=== PATIENT | female | born 1970 | race Caucasian/White ===

== ENCOUNTER 2017-10-18 16:21 | Emergency (ER) | payer OTHER ==
[~2017-10-18] VITALS: Ht 160 cm; Wt 79.4 kg
[~2017-10-18 16:21] MED LIST: ANAPROX DS550 MG PO; ASPIRIN81 M1 PO; BACTRIM DS 8001 TA1 PO; CIPRO500 MG PO; CLEOCIN 60 ML60 ML TP; DAYPRO600 M1 PO; DIAZEPAM2 MG PO; FLEXERIL10 MG PO; HYDROCODONE BIT1 T11 PO; MOTRIN600 MG PO; MOTRIN800 MG PO; NEURONTIN400 MG PO; NKHM; NORFLEX100 MG PO; PRILOSEC20 M1 PO; PRILOSEC20 MG PO; REBETOL200 MG PO; ROBAXIN750 MG PO; SEPTRA DS 800 M1 TAB PO; TORADOL10 MG PO; TRAMADOL HCL50 MG PO; VICODIN 5/500 505 MG PO; VICODIN 500 MG-1 TAB PO; XANAX0.25 MG PO; XANAX0.5 MG PO
[2017-10-18 16:29] VITALS: BP 138/87
[2017-10-18] MEDS ORDERED: EASIVENT CHAMBE1 KIT DEVI (18:14)
[2017-10-18] MEDS ORDERED: PROAIR HFA8.5 GM INH (18:14)
[2017-10-18] MEDS ORDERED: PREDNISONE50 MG PO (18:14)
== END 2017-10-18 18:37 | disposition home or self-care (01) ==
LOC: ED 16:21
DX: J40 Bronchitis, not specified as acute or chronic (principal); F17.200 Nicotine dependence, unspecified, uncomplicated; Z98.51 Tubal ligation status; Z98.890 Other specified postprocedural states; Z79.899 Other long term (current) drug therapy

== ENCOUNTER 2017-11-30 10:27 | Emergency (ER) | payer OTHER ==
[~2017-11-30] VITALS: Ht 160 cm; Wt 83.5 kg
[~2017-11-30 10:27] MED LIST changes: +EASIVENT CHAMBE1 KIT DEVI; +PREDNISONE50 MG PO; +PROAIR HFA8.5 GM INH
[2017-11-30 11:45] VITALS: BP 138/82
== END 2017-11-30 12:35 | disposition home or self-care (01) ==
LOC: ED 10:27
DX: S80.01XA Contusion of right knee, initial encounter (principal); S80.11XA Contusion of right lower leg, initial encounter; R03.0 Elevated blood-pressure reading, without diagnosis of hypertension; Z79.899 Other long term (current) drug therapy; W19.XXXA Unspecified fall, initial encounter; Y93.89 Activity, other specified; Y92.89 Other specified places as the place of occurrence of the external cause; Y99.8 Other external cause status

== ENCOUNTER → 2018-12-08 | Outpatient (CLI) | payer MEDICARE ==
[~2018-12-08] MED LIST changes: +IBU800 MG PO
== END | disposition home or self-care (01) ==
LOC: MAMMO 12-01 14:00
DX: Z12.31 Encounter for screening mammogram for malignant neoplasm of breast (principal)

== ENCOUNTER 2018-12-28 18:24 | Emergency (ER) | payer MEDICARE, MEDICAID ==
[~2018-12-28] VITALS: Ht 160 cm; Wt 81.6 kg
[~2018-12-28 18:24] MED LIST changes: -IBU800 MG PO
[2018-12-28 18:26] VITALS: BP 123/79
[2018-12-28] MEDS ORDERED: IBU800 MG PO (20:03)
== END 2018-12-28 19:59 | disposition home or self-care (01) ==
LOC: ED 18:24
DX: S92.325A Nondisplaced fracture of second metatarsal bone, left foot, initial encounter for closed fracture (principal); S92.332A Displaced fracture of third metatarsal bone, left foot, initial encounter for closed fracture; S92.342A Displaced fracture of fourth metatarsal bone, left foot, initial encounter for closed fracture; M25.562 Pain in left knee; I10 Essential (primary) hypertension; F17.200 Nicotine dependence, unspecified, uncomplicated; Z98.890 Other specified postprocedural states; Z79.899 Other long term (current) drug therapy; W01.0XXA Fall on same level from slipping, tripping and stumbling without subsequent striking against object, initial encounter; Y93.89 Activity, other specified; Y92.89 Other specified places as the place of occurrence of the external cause; Y99.8 Other external cause status

== ENCOUNTER → 2020-08-27 | Outpatient (CLI) | payer MEDICARE, MEDICAID ==
[~2020-08-27] MED LIST changes: +CYCLOBENZAPRINE10 MG PO; +DULOXETINE HCL30 MG PO; +HYDROCODON-ACE1 EACH PO; +IBU800 MG PO; +LISINOPRIL5 MG PO; +LYRICA150 M1 PO; +MISOPROST200 MCG PO; +PERCOCET 5-3251 EACH PO; +VITAMIN D32000 UNI1 PO
[2020-08-27 10:51] LABS: BASO % 0.4 % (0.0-1.0); EOS # 0.2 10*3/uL (0.0-0.4); EOS % 2.7 % (1.0-4.0); HEMATOCRIT 38.3 % (37.0-47.0); LYMPH # 1.6 10*3/uL (1.3-4.4); LYMPH % 27.9 % (27.0-41.0); MEAN CELL VOLUME 93.6 fl (81.0-99.0); MEAN CORPUSCULAR HGB 30.6 pg (27.0-31.0); MEAN CORPUSCULAR HGB CONC 32.6 g/dl (33.0-37.0); MEAN PLATELET VOLUME 9.6 fl (9.6-12.3); MONO # 0.4 10*3/uL (0.1-1.0); NEUT # 3.4 10*3/uL (2.3-7.9); NEUT % 61.8 % (47.0-73.0); PLATELET COUNT AUTOMATED 228 10*3/uL (130-400); RED BLOOD COUNT 4.09 10*6/uL (4.10-5.10); RED CELL DISTRI WIDTH 13.4 % (0-14.5); WHITE BLOOD COUNT 5.6 10*3/uL (4.8-10.8)
[2020-08-27 11:21] LABS: ALBUMIN 3.6 gm/dl (3.1-4.5); BUN 14 mg/dl (7-24); CHLORIDE 111 mmol/L (98-107); POTASSIUM 4.2 mmol/L (3.5-5.1); SGOT/AST 25 IU/L (3-35); SODIUM 139 mmol/L (136-145)
[2020-08-27 11:25] LABS: ALKALINE PHOSPHATASE 87 U/L (45-117); CHOLESTEROL 158 mg/dL (<200); CREATININE 0.63 mg/dL (0.55-1.02); FREE T4 0.68 ng/dl (0.76-1.46); HDL CHOLESTEROL 65 mg/dl (40-60); LDL CHOLESTEROL 73 mg/dL (9-159); SGPT/ALT 29 U/L (12-78); TOTAL PROTEIN 7.1 gm/dL (6.4-8.2); TRIGLYCERIDES 102 mg/dl (<150); VLDL CHOLESTEROL 20 mg/dL (6-40)
[2020-08-27 11:41] LABS: VITAMIN D, 25-HYDROXY 31.7 ng/mL (30-100)
== END | disposition home or self-care (01) ==
LOC: LAB 10:20
PROVIDERS: ATTEND Internal Medicine
DX: I10 Essential (primary) hypertension (principal); E55.9 Vitamin D deficiency, unspecified

== ENCOUNTER 2020-11-24 15:54 | Inpatient (IN) | payer OTHER, MEDICAID ==
[~2020-11-24] VITALS: Ht 160 cm; Wt 92.2 kg
[~2020-11-24 15:54] MED LIST changes: -CYCLOBENZAPRINE10 MG PO; -DULOXETINE HCL30 MG PO; -HYDROCODON-ACE1 EACH PO; -LISINOPRIL5 MG PO; -LYRICA150 M1 PO; -MISOPROST200 MCG PO; -PERCOCET 5-3251 EACH PO; -VITAMIN D32000 UNI1 PO
[2020-11-24 15:59] VITALS: BP 107/83
[2020-11-24 16:44] LABS: BASO % 0.4 % (0.0-1.0); EOS # 0.1 10*3/uL (0.0-0.4); EOS % 1.2 % (1.0-4.0); HEMATOCRIT 42.8 % (37.0-47.0); LYMPH # 2.5 10*3/uL (1.3-4.4); LYMPH % 23.9 % (27.0-41.0); MEAN CELL VOLUME 100.2 fl (81.0-99.0); MEAN CORPUSCULAR HGB 32.1 pg (27.0-31.0); MEAN PLATELET VOLUME 10.3 fl (9.6-12.3); MONO # 0.9 10*3/uL (0.1-1.0); MONO % 8.3 % (3.0-9.0); NEUT # 6.9 10*3/uL (2.3-7.9); PLATELET COUNT AUTOMATED 208 10*3/uL (130-400); RED BLOOD COUNT 4.27 10*6/uL (4.10-5.10); RED CELL DISTRI WIDTH 13.1 % (0-14.5); WHITE BLOOD COUNT 10.4 10*3/uL (4.8-10.8)
[2020-11-24 16:55] LABS: ALBUMIN 3.8 gm/dl (3.1-4.5); ALKALINE PHOSPHATASE 110 U/L (45-117); BUN 14 mg/dl (7-24); CHLORIDE 104 mmol/L (98-107); CREATININE 0.69 mg/dL (0.55-1.02); POTASSIUM 3.5 mmol/L (3.5-5.1); SGOT/AST 18 IU/L (3-35); SGPT/ALT 21 U/L (12-78); SODIUM 136 mmol/L (136-145); TOTAL PROTEIN 8.1 gm/dL (6.4-8.2)
[2020-11-24] MEDS ORDERED: LISINOPRIL5 MG PO (19:16)
[2020-11-24] MEDS ORDERED: CYCLOBENZAPRINE10 MG PO (19:17)
[2020-11-24] MEDS ORDERED: MISOPROST200 MCG PO (19:17)
[2020-11-24 19:25] VITALS: BP 110/71
[2020-11-24 20:00] VITALS: BP 126/89
[2020-11-24 20:39] VITALS: BP 111/71
[2020-11-25] VITALS: BP 129/80
[2020-11-25 06:06] LABS: ALBUMIN 2.9 gm/dl (3.1-4.5); ALKALINE PHOSPHATASE 82 U/L (45-117); BUN 11 mg/dl (7-24); CHLORIDE 109 mmol/L (98-107); CREATININE 0.45 mg/dL (0.55-1.02); SGOT/AST 11 IU/L (3-35); SGPT/ALT 15 U/L (12-78); SODIUM 139 mmol/L (136-145)
[2020-11-25 06:07] LABS: BASO % 0.3 % (0.0-1.0); EOS # 0.2 10*3/uL (0.0-0.4); EOS % 2.5 % (1.0-4.0); HEMATOCRIT 38.4 % (37.0-47.0); LYMPH % 30.2 % (27.0-41.0); MEAN CELL VOLUME 98.5 fl (81.0-99.0); MEAN CORPUSCULAR HGB 31.8 pg (27.0-31.0); MEAN CORPUSCULAR HGB CONC 32.3 g/dl (33.0-37.0); MEAN PLATELET VOLUME 10.3 fl (9.6-12.3); MONO # 0.7 10*3/uL (0.1-1.0); MONO % 10.1 % (3.0-9.0); NEUT # 3.8 10*3/uL (2.3-7.9); NEUT % 56.6 % (47.0-73.0); PLATELET COUNT AUTOMATED 188 10*3/uL (130-400); RED CELL DISTRI WIDTH 13.2 % (0-14.5); WHITE BLOOD COUNT 6.7 10*3/uL (4.8-10.8)
[2020-11-25 09:07] VITALS: BP 115/73
[2020-11-25 12:00] VITALS: BP 123/81
[2020-11-25 15:56] VITALS: BP 134/86
[2020-11-25 20:00] VITALS: BP 113/70
[2020-11-26] VITALS: BP 110/55
[2020-11-26 00:34] LABS: BASO % 0.3 % (0.0-1.0); EOS # 0.2 10*3/uL (0.0-0.4); EOS % 2.5 % (1.0-4.0); HEMATOCRIT 37.7 % (37.0-47.0); LYMPH # 2.3 10*3/uL (1.3-4.4); LYMPH % 32.2 % (27.0-41.0); MEAN CELL VOLUME 98.7 fl (81.0-99.0); MEAN CORPUSCULAR HGB 31.7 pg (27.0-31.0); MEAN CORPUSCULAR HGB CONC 32.1 g/dl (33.0-37.0); MEAN PLATELET VOLUME 10.1 fl (9.6-12.3); MONO # 0.8 10*3/uL (0.1-1.0); MONO % 11.4 % (3.0-9.0); NEUT # 3.9 10*3/uL (2.3-7.9); NEUT % 53.3 % (47.0-73.0); PLATELET COUNT AUTOMATED 208 10*3/uL (130-400); RED BLOOD COUNT 3.82 10*6/uL (4.10-5.10); WHITE BLOOD COUNT 7.2 10*3/uL (4.8-10.8)
[2020-11-26 08:00] VITALS: BP 117/73
[2020-11-26 12:00] VITALS: BP 138/75
[2020-11-26 12:40] LABS: BODY FLUID WBC 28380 /uL
[2020-11-26 13:02] LABS: BF LYMPHOCYTES 2 %; BF MACROPHAGES 2 %; BF NEUTROPHILS 96 %
[2020-11-26] MEDS ORDERED: DULOXETINE HCL30 MG PO (15:45)
[2020-11-26] MEDS ORDERED: LYRICA150 M1 PO (15:46)
[2020-11-26] MEDS ORDERED: VITAMIN D32000 UNI1 PO (15:46)
[2020-11-26 16:00] VITALS: BP 141/117
[2020-11-26 16:30] VITALS: BP 130/88
[2020-11-26 20:00] VITALS: BP 113/71
[2020-11-27] VITALS: BP 108/67
[2020-11-27 06:21] LABS: BASO % 0.5 % (0.0-1.0); EOS # 0.2 10*3/uL (0.0-0.4); EOS % 3.4 % (1.0-4.0); HEMATOCRIT 37.8 % (37.0-47.0); LYMPH % 32.3 % (27.0-41.0); MEAN CELL VOLUME 99.5 fl (81.0-99.0); MEAN CORPUSCULAR HGB 31.6 pg (27.0-31.0); MEAN CORPUSCULAR HGB CONC 31.7 g/dl (33.0-37.0); MEAN PLATELET VOLUME 9.9 fl (9.6-12.3); MONO # 0.8 10*3/uL (0.1-1.0); MONO % 12.4 % (3.0-9.0); NEUT # 3.1 10*3/uL (2.3-7.9); NEUT % 51.2 % (47.0-73.0); PLATELET COUNT AUTOMATED 215 10*3/uL (130-400); RED CELL DISTRI WIDTH 12.8 % (0-14.5); WHITE BLOOD COUNT 6.1 10*3/uL (4.8-10.8)
[2020-11-27 06:52] LABS: BUN 7 mg/dl (7-24); CHLORIDE 107 mmol/L (98-107); CREATININE 0.54 mg/dL (0.55-1.02); SODIUM 140 mmol/L (136-145)
[2020-11-27 08:00] VITALS: BP 100/58; BP 136/58
[2020-11-27 16:00] VITALS: BP 111/55
[2020-11-27 20:00] VITALS: BP 126/84
[2020-11-28] VITALS: BP 128/81
[2020-11-28 06:15] LABS: BASO % 0.4 % (0.0-1.0); EOS # 0.2 10*3/uL (0.0-0.4); EOS % 4.4 % (1.0-4.0); HEMATOCRIT 40.5 % (37.0-47.0); LYMPH # 1.7 10*3/uL (1.3-4.4); LYMPH % 35.6 % (27.0-41.0); MEAN CELL VOLUME 97.8 fl (81.0-99.0); MEAN CORPUSCULAR HGB 31.4 pg (27.0-31.0); MEAN CORPUSCULAR HGB CONC 32.1 g/dl (33.0-37.0); MEAN PLATELET VOLUME 9.9 fl (9.6-12.3); MONO # 0.7 10*3/uL (0.1-1.0); MONO % 13.8 % (3.0-9.0); NEUT # 2.2 10*3/uL (2.3-7.9); NEUT % 45.4 % (47.0-73.0); PLATELET COUNT AUTOMATED 243 10*3/uL (130-400); RED BLOOD COUNT 4.14 10*6/uL (4.10-5.10); RED CELL DISTRI WIDTH 12.4 % (0-14.5); WHITE BLOOD COUNT 4.8 10*3/uL (4.8-10.8)
[2020-11-28 06:26] LABS: BUN 8 mg/dl (7-24); CHLORIDE 108 mmol/L (98-107); CREATININE 0.47 mg/dL (0.55-1.02); POTASSIUM 3.9 mmol/L (3.5-5.1); SODIUM 138 mmol/L (136-145)
[2020-11-28 12:00] VITALS: BP 110/79
[2020-11-28] MEDS ORDERED: PERCOCET 5-3251 EACH PO (14:58)
== END 2020-11-28 17:00 | disposition home health service (06) | DRG 603 ==
LOC: ED 15:54 → 5E 18:21 → EDHOLD 18:21 → 5E 18:48
PROVIDERS: Orthopaedic Surgery; Physician Assistant; Student in an Organized Health Care Education/Training Program; ADMIT Internal Medicine; ATTEND Internal Medicine
PROC: 0M943ZZ Drainage of Left Elbow Bursa and Ligament, Percutaneous Approach (ICD-10-PCS; 2020-11-26)
PROC: 0X9 Anatomical Regions, Upper Extremities, Drainage (ICD-10-PCS; principal; 2020-11-28)
PROC: 02HV33Z Insertion of Infusion Device into Superior Vena Cava, Percutaneous Approach (ICD-10-PCS; 2020-11-28)
DX: L03.114 Cellulitis of left upper limb (principal); E44.0 Moderate protein-calorie malnutrition; M70.22 Olecranon bursitis, left elbow; M48.00 Spinal stenosis, site unspecified; E87.8 Other disorders of electrolyte and fluid balance, not elsewhere classified; R73.9 Hyperglycemia, unspecified; E83.51 Hypocalcemia; F17.210 Nicotine dependence, cigarettes, uncomplicated; I10 Essential (primary) hypertension; Z71.6 Tobacco abuse counseling; Z82.3 Family history of stroke; Z79.899 Other long term (current) drug therapy; Z79.51 Long term (current) use of inhaled steroids; Z68.36 Body mass index [BMI] 36.0-36.9, adult

== ENCOUNTER 2020-12-04 11:54 | Inpatient (IN) | payer OTHER, MEDICAID ==
[~2020-12-04] VITALS: Ht 160 cm; Wt 90.1 kg
[~2020-12-04 11:54] MED LIST changes: +CYCLOBENZAPRINE10 MG PO; +DULOXETINE HCL30 MG PO; +LISINOPRIL5 MG PO; +LYRICA150 M1 PO; +MISOPROST200 MCG PO; +PERCOCET 5-3251 EACH PO; +VITAMIN D32000 UNI1 PO
[2020-12-04 12:09] VITALS: BP 112/75
[2020-12-04 13:18] LABS: BASO # 0.1 10*3/uL (0.0-0.1); BASO % 0.6 % (0.0-1.0); EOS # 0.1 10*3/uL (0.0-0.4); EOS % 1.8 % (1.0-4.0); HEMATOCRIT 39.1 % (37.0-47.0); LYMPH % 26.3 % (27.0-41.0); MEAN CELL VOLUME 98.2 fl (81.0-99.0); MEAN CORPUSCULAR HGB 31.7 pg (27.0-31.0); MEAN CORPUSCULAR HGB CONC 32.2 g/dl (33.0-37.0); MEAN PLATELET VOLUME 9.7 fl (9.6-12.3); MONO # 0.6 10*3/uL (0.1-1.0); MONO % 7.1 % (3.0-9.0); NEUT # 4.9 10*3/uL (2.3-7.9); NEUT % 63.9 % (47.0-73.0); PLATELET COUNT AUTOMATED 263 10*3/uL (130-400); RED BLOOD COUNT 3.98 10*6/uL (4.10-5.10); RED CELL DISTRI WIDTH 12.8 % (0-14.5); WHITE BLOOD COUNT 7.7 10*3/uL (4.8-10.8)
[2020-12-04 13:27] LABS: ACT PARTIAL THROMBO TIME 25.7 SECONDS (20.0-32.1)
[2020-12-04 13:32] LABS: ALBUMIN 3.4 gm/dl (3.1-4.5); ALKALINE PHOSPHATASE 98 U/L (45-117); BUN 11 mg/dl (7-24); CHLORIDE 106 mmol/L (98-107); CREATININE 0.64 mg/dL (0.55-1.02); POTASSIUM 4.1 mmol/L (3.5-5.1); SGOT/AST 18 IU/L (3-35); SGPT/ALT 14 U/L (12-78); SODIUM 139 mmol/L (136-145); TOTAL PROTEIN 7.5 gm/dL (6.4-8.2)
[2020-12-04 16:29] VITALS: BP 115/84
[2020-12-04 17:22] VITALS: BP 133/92; BP 140/80
[2020-12-04 20:00] VITALS: BP 141/96
[2020-12-05] VITALS: BP 138/83
[2020-12-05 06:38] LABS: BASO # 0.1 10*3/uL (0.0-0.1); EOS # 0.2 10*3/uL (0.0-0.4); EOS % 3.8 % (1.0-4.0); LYMPH # 2.3 10*3/uL (1.3-4.4); LYMPH % 38.9 % (27.0-41.0); MEAN CELL VOLUME 97.7 fl (81.0-99.0); MEAN CORPUSCULAR HGB 30.8 pg (27.0-31.0); MEAN CORPUSCULAR HGB CONC 31.6 g/dl (33.0-37.0); MEAN PLATELET VOLUME 9.9 fl (9.6-12.3); MONO # 0.6 10*3/uL (0.1-1.0); NEUT # 2.7 10*3/uL (2.3-7.9); PLATELET COUNT AUTOMATED 259 10*3/uL (130-400); RED BLOOD COUNT 3.89 10*6/uL (4.10-5.10); RED CELL DISTRI WIDTH 12.8 % (0-14.5); WHITE BLOOD COUNT 5.8 10*3/uL (4.8-10.8)
[2020-12-05 06:54] LABS: BUN 9 mg/dl (7-24); CHLORIDE 109 mmol/L (98-107); CREATININE 0.54 mg/dL (0.55-1.02); SODIUM 139 mmol/L (136-145)
[2020-12-05 06:56] LABS: CPK 63 U/L (26-192)
[2020-12-05 08:33] VITALS: BP 111/63
[2020-12-05 12:09] VITALS: BP 97/56
[2020-12-05 16:23] VITALS: BP 112/62
[2020-12-05 20:00] VITALS: BP 133/83
[2020-12-06] VITALS: BP 113/73
[2020-12-06 08:00] VITALS: BP 116/71
[2020-12-06 12:00] VITALS: BP 125/87
[2020-12-06] MEDS ORDERED: HYDROCODON-ACE1 EACH PO (15:36)
== END 2020-12-06 16:35 | disposition home health service (06) | DRG 464 ==
LOC: ED 11:54 → 5E 14:58 → EDHOLD 14:58 → 5E 16:23
PROVIDERS: Emergency Medicine; Student in an Organized Health Care Education/Training Program; ADMIT Internal Medicine; ATTEND Internal Medicine
PROC: 0JBH0ZZ Excision of Left Lower Arm Subcutaneous Tissue and Fascia, Open Approach (ICD-10-PCS; principal; 2020-12-05)
DX: M71.122 Other infective bursitis, left elbow (principal); L03.114 Cellulitis of left upper limb; F17.210 Nicotine dependence, cigarettes, uncomplicated; B95.61 Methicillin susceptible Staphylococcus aureus infection as the cause of diseases classified elsewhere; E83.41 Hypermagnesemia; I10 Essential (primary) hypertension; R70.0 Elevated erythrocyte sedimentation rate; R15.9 Full incontinence of feces; Z98.891 History of uterine scar from previous surgery; Z98.51 Tubal ligation status; Z82.3 Family history of stroke; Z71.6 Tobacco abuse counseling

== ENCOUNTER → 2021-02-23 | Outpatient (CLI) | payer OTHER ==
[~2021-02-23] MED LIST changes: +HYDROCODON-ACE1 EACH PO
== END | disposition home or self-care (01) ==
LOC: RAD 12:19
PROVIDERS: ATTEND Physician Assistant
DX: M25.511 Pain in right shoulder (principal)

== ENCOUNTER → 2021-03-08 | Outpatient (CLI) | payer OTHER ==
[2021-03-08 15:37] LABS: BASO % 0.6 % (0.0-1.0); EOS # 0.2 10*3/uL (0.0-0.4); EOS % 2.6 % (1.0-4.0); HEMATOCRIT 42.4 % (37.0-47.0); LYMPH # 2.4 10*3/uL (1.3-4.4); LYMPH % 36.2 % (27.0-41.0); MEAN CELL VOLUME 100.2 fl (81.0-99.0); MEAN CORPUSCULAR HGB 31.9 pg (27.0-31.0); MEAN CORPUSCULAR HGB CONC 31.8 g/dl (33.0-37.0); MEAN PLATELET VOLUME 10.5 fl (9.6-12.3); MONO # 0.6 10*3/uL (0.1-1.0); MONO % 9.1 % (3.0-9.0); NEUT # 3.4 10*3/uL (2.3-7.9); NEUT % 51.2 % (47.0-73.0); PLATELET COUNT AUTOMATED 216 10*3/uL (130-400); RED BLOOD COUNT 4.23 10*6/uL (4.10-5.10); RED CELL DISTRI WIDTH 14.3 % (0-14.5); WHITE BLOOD COUNT 6.6 10*3/uL (4.8-10.8)
[2021-03-08 15:54] LABS: ALBUMIN 3.8 gm/dl (3.1-4.5); ALKALINE PHOSPHATASE 92 U/L (45-117); BUN 8 mg/dl (7-24); CHLORIDE 106 mmol/L (98-107); CREATININE 0.61 mg/dL (0.55-1.02); POTASSIUM 3.8 mmol/L (3.5-5.1); SGOT/AST 32 IU/L (3-35); SGPT/ALT 31 U/L (12-78); SODIUM 137 mmol/L (136-145); TOTAL PROTEIN 7.5 gm/dL (6.4-8.2)
== END | disposition home or self-care (01) ==
LOC: LAB 14:43
PROVIDERS: ATTEND Specialist
DX: M70.32 Other bursitis of elbow, left elbow (principal); I10 Essential (primary) hypertension

== ENCOUNTER 2021-04-24 15:07 | Emergency (ER) | payer OTHER | END 2021-04-24 16:15 | disposition left against medical advice (07) | LOC: ED 15:07 | DX: M79.606 Pain in leg, unspecified (principal); Z53.21 Procedure and treatment not carried out due to patient leaving prior to being seen by health care provider ==

== ENCOUNTER → 2021-08-06 | Outpatient (CLI) | payer OTHER | END | disposition home or self-care (01) | LOC: RAD 14:08 | PROVIDERS: ATTEND Internal Medicine | DX: M79.641 Pain in right hand (principal) ==

== ENCOUNTER → 2021-09-20 | Outpatient (CLI) | payer OTHER | END | disposition home or self-care (01) | LOC: LAB 09:16 | PROVIDERS: ATTEND Orthopaedic Surgery | DX: M19.90 Unspecified osteoarthritis, unspecified site (principal) ==

== ENCOUNTER → 2021-10-16 | Outpatient (CLI) | payer OTHER | END | disposition home or self-care (01) | LOC: MRI 13:47 | PROVIDERS: ATTEND Internal Medicine | DX: M79.641 Pain in right hand (principal) ==

== ENCOUNTER 2022-05-22 18:35 | Emergency (ER) | payer OTHER ==
[~2022-05-22] VITALS: Wt 83.6 kg
[2022-05-22 18:56] LABS: BILIRUBIN Negative (Negative); BLOOD Negative (Negative); CLARITY Clear (Clear); COLOR Yellow (Yellow); GLUCOSE Negative (Negative); KETONE Negative (Negative); LEUKO ESTERASE Negative (Negative); NITRITE Negative (Negative); PH 6.5 (4.5-8.0); SPECIFIC GRAVITY <= 1.005 (1.001-1.030); UROBILINOGEN 0.2 E.U./dl (0.0-1.0)
[2022-05-22 19:05] LABS: URINE AMPHETAMINES < 1000 (1000ng/ml); URINE BARBITURATES < 200 (200ng/ml); URINE BENZODIAZEPINES < 200 (200ng/ml); URINE CANNABINOIDS (THC) < 50 (50ng/ml); URINE COCAINE < 300 (300ng/ml); URINE METHADONE < 300 (300ng/ml); URINE OPIATES < 300 (300ng/ml)
[2022-05-22 19:12] LABS: URINE PHENCYCLIDINE < 25 (25ng/ml)
[2022-05-22 19:52] LABS: BACTERIA TRACE; EPITHELIAL CELLS 0-2
[2022-05-22 20:06] LABS: BASO # 0.1 10*3/uL (0.0-0.1); BASO % 1.1 % (0.0-1.0); EOS # 0.1 10*3/uL (0.0-0.4); EOS % 2.4 % (1.0-4.0); HEMATOCRIT 42.9 % (37.0-47.0); LYMPH % 43.2 % (27.0-41.0); MEAN CELL VOLUME 105.1 fl (81.0-99.0); MEAN CORPUSCULAR HGB 32.8 pg (27.0-31.0); MEAN CORPUSCULAR HGB CONC 31.2 g/dl (33.0-37.0); MEAN PLATELET VOLUME 9.8 fl (9.6-12.3); MONO # 0.4 10*3/uL (0.1-1.0); MONO % 8.2 % (3.0-9.0); NEUT # 2.1 10*3/uL (2.3-7.9); NEUT % 44.9 % (47.0-73.0); PLATELET COUNT AUTOMATED 248 10*3/uL (130-400); RED BLOOD COUNT 4.08 10*6/uL (4.10-5.10); RED CELL DISTRI WIDTH 11.9 % (0-14.5); WHITE BLOOD COUNT 4.6 10*3/uL (4.8-10.8)
[2022-05-22 20:26] LABS: ALKALINE PHOSPHATASE 96 U/L (45-117); BUN 11 mg/dl (7-24); CHLORIDE 112 mmol/L (98-107); CREATININE 0.57 mg/dL (0.55-1.02); POTASSIUM 4.1 mmol/L (3.5-5.1); SGOT/AST 30 IU/L (3-35); SGPT/ALT 39 U/L (12-78); SODIUM 143 mmol/L (136-145); TOTAL PROTEIN 7.6 gm/dL (6.4-8.2)
[2022-05-22 20:56] LABS: ACETAMINOPHEN (TYLENOL) < 5.0 ug/ml (10-30)
[2022-05-22 21:05] LABS: URINE AMPHETAMINES < 1000 (1000ng/ml); URINE BARBITURATES < 200 (200ng/ml); URINE BENZODIAZEPINES < 200 (200ng/ml); URINE CANNABINOIDS (THC) < 50 (50ng/ml); URINE COCAINE < 300 (300ng/ml); URINE METHADONE < 300 (300ng/ml); URINE OPIATES < 300 (300ng/ml)
[2022-05-22 21:15] LABS: URINE PHENCYCLIDINE < 25 (25ng/ml)
[2022-05-22 21:20] VITALS: BP 107/68; BP 107/74; BP 149/126
[2022-05-24 06:10] VITALS: BP 140/85
== END 2022-05-24 09:45 ==
LOC: ED 18:35
PROVIDERS: Emergency Medicine
DX: F43.21 Adjustment disorder with depressed mood (principal); Z20.822 Contact with and (suspected) exposure to COVID-19; F10.10 Alcohol abuse, uncomplicated; I10 Essential (primary) hypertension; F17.210 Nicotine dependence, cigarettes, uncomplicated; Z98.890 Other specified postprocedural states; Z98.51 Tubal ligation status; Z79.899 Other long term (current) drug therapy; Y90.9 Presence of alcohol in blood, level not specified

== ENCOUNTER 2023-01-07 16:12 | Emergency (ER) | payer OTHER ==
[~2023-01-07] VITALS: Wt 78.0 kg
[2023-01-07 16:30] VITALS: BP 125/86
== END 2023-01-07 18:09 | disposition left against medical advice (07) ==
LOC: ED 16:12
DX: R51.9 Headache, unspecified (principal); R22.0 Localized swelling, mass and lump, head; Z53.21 Procedure and treatment not carried out due to patient leaving prior to being seen by health care provider; W17.89XA Other fall from one level to another, initial encounter; Y93.89 Activity, other specified; Y92.89 Other specified places as the place of occurrence of the external cause; Y99.8 Other external cause status

== ENCOUNTER 2023-02-04 21:11 | Emergency (ER) | payer OTHER ==
[~2023-02-04] VITALS: Ht 160 cm; Wt 77.1 kg
[2023-02-04 21:57] VITALS: BP 107/82
== END 2023-02-04 23:42 | disposition home or self-care (01) ==
LOC: ED 21:11
DX: R51.9 Headache, unspecified (principal); K21.9 Gastro-esophageal reflux disease without esophagitis; F32.A Depression, unspecified; Z98.890 Other specified postprocedural states; F10.10 Alcohol abuse, uncomplicated; F17.200 Nicotine dependence, unspecified, uncomplicated

== ENCOUNTER 2023-03-24 17:17 | Emergency (ER) | payer OTHER ==
[~2023-03-24] VITALS: Wt 76.2 kg
[2023-03-24 18:07] LABS: BASO % 0.5 % (0.0-1.0); EOS # 0.2 10*3/uL (0.0-0.4); EOS % 2.6 % (1.0-4.0); HEMATOCRIT 39.7 % (37.0-47.0); LYMPH # 2.2 10*3/uL (1.3-4.4); LYMPH % 38.7 % (27.0-41.0); MEAN CELL VOLUME 94.1 fl (81.0-99.0); MEAN PLATELET VOLUME 9.9 fl (9.6-12.3); MONO # 0.4 10*3/uL (0.1-1.0); MONO % 6.1 % (3.0-9.0); NEUT % 51.9 % (47.0-73.0); PLATELET COUNT AUTOMATED 251 10*3/uL (130-400); RED BLOOD COUNT 4.22 10*6/uL (4.10-5.10); RED CELL DISTRI WIDTH 12.2 % (0-14.5); WHITE BLOOD COUNT 5.8 10*3/uL (4.8-10.8)
[2023-03-24 18:36] LABS: ALKALINE PHOSPHATASE 83 U/L (46-116); BUN 13 mg/dl (9-23); CHLORIDE 103 mmol/L (98-107); LIPASE 23 U/L (12-53); POTASSIUM 3.6 mmol/L (3.4-5.1); SGPT/ALT 21 U/L (10-49); TOTAL PROTEIN 6.8 gm/dL (6.0-8.0)
[2023-03-24 19:07] VITALS: BP 134/89
== END 2023-03-24 20:14 | disposition home or self-care (01) ==
LOC: ED 17:17
PROVIDERS: Physician Assistant Medical
DX: R07.1 Chest pain on breathing (principal); K21.9 Gastro-esophageal reflux disease without esophagitis; F32.A Depression, unspecified; Z98.890 Other specified postprocedural states; F17.200 Nicotine dependence, unspecified, uncomplicated; F10.10 Alcohol abuse, uncomplicated

== ENCOUNTER 2023-08-15 21:49 | Emergency (ER) | payer OTHER, MEDICARE ==
[~2023-08-15] VITALS: Ht 160 cm; Wt 76.2 kg
[2023-08-15 22:41] LABS: BASO % 0.5 % (0.0-1.0); EOS # 0.1 10*3/uL (0.0-0.4); EOS % 2.1 % (1.0-4.0); HEMATOCRIT 44.4 % (37.0-47.0); LYMPH # 2.3 10*3/uL (1.3-4.4); LYMPH % 35.4 % (27.0-41.0); MEAN CELL VOLUME 96.9 fl (81.0-99.0); MEAN PLATELET VOLUME 9.4 fl (9.6-12.3); MONO # 0.5 10*3/uL (0.1-1.0); MONO % 7.3 % (3.0-9.0); NEUT # 3.6 10*3/uL (2.3-7.9); NEUT % 54.5 % (47.0-73.0); PLATELET COUNT AUTOMATED 268 10*3/uL (130-400); RED BLOOD COUNT 4.58 10*6/uL (4.10-5.10); RED CELL DISTRI WIDTH 12.3 % (0-14.5); WHITE BLOOD COUNT 6.6 10*3/uL (4.8-10.8)
[2023-08-15 22:49] LABS: ACT PARTIAL THROMBO TIME 25.4 SECONDS (20.0-32.1)
[2023-08-15 22:54] LABS: ALKALINE PHOSPHATASE 103 U/L (46-116); BUN 11 mg/dl (9-23); CHLORIDE 105 mmol/L (98-107); ETHYL ALCOHOL 7.7 mg/dl (<3); LIPASE 25 U/L (12-53); POTASSIUM 3.7 mmol/L (3.4-5.1); SGPT/ALT 23 U/L (5-49); TOTAL PROTEIN 7.8 gm/dL (6.0-8.0)
[2023-08-16 00:30] VITALS: BP 134/78
== END 2023-08-16 00:45 | disposition home or self-care (01) ==
LOC: ED 21:53
PROVIDERS: Internal Medicine
DX: M54.2 Cervicalgia (principal); R07.89 Other chest pain; M25.551 Pain in right hip; M79.604 Pain in right leg; M79.601 Pain in right arm; F17.210 Nicotine dependence, cigarettes, uncomplicated; Z79.899 Other long term (current) drug therapy; Z98.890 Other specified postprocedural states; Z98.51 Tubal ligation status; V89.2XXA Person injured in unspecified motor-vehicle accident, traffic, initial encounter; Y93.89 Activity, other specified; Y92.488 Other paved roadways as the place of occurrence of the external cause; Y99.8 Other external cause status

== ENCOUNTER 2024-08-05 21:01 | Emergency (ER) | payer OTHER ==
[~2024-08-05] VITALS: Ht 160 cm; Wt 81.4 kg
[2024-08-05 21:33] LABS: BASO % 0.5 % (0.0-1.0); EOS # 0.1 10*3/uL (0.0-0.4); EOS % 1.7 % (1.0-4.0); HEMATOCRIT 43.4 % (37.0-47.0); MEAN CELL VOLUME 97.1 fl (81.0-99.0); MEAN CORPUSCULAR HGB 30.6 pg (27.0-31.0); MEAN CORPUSCULAR HGB CONC 31.6 g/dl (33.0-37.0); MEAN PLATELET VOLUME 9.2 fl (9.6-12.3); MONO # 0.6 10*3/uL (0.1-1.0); MONO % 8.6 % (3.0-9.0); NEUT # 4.5 10*3/uL (2.3-7.9); NEUT % 69.7 % (47.0-73.0); PLATELET COUNT AUTOMATED 252 10*3/uL (130-400); RED BLOOD COUNT 4.47 10*6/uL (4.10-5.10); RED CELL DISTRI WIDTH 13.3 % (0-14.5); WHITE BLOOD COUNT 6.4 10*3/uL (4.8-10.8)
[2024-08-05 22:03] LABS: ALKALINE PHOSPHATASE 96 U/L (46-116); BUN 15 mg/dl (9-23); CHLORIDE 105 mmol/L (98-107); POTASSIUM 3.7 mmol/L (3.4-5.1); SGPT/ALT 30 U/L (5-49); TOTAL PROTEIN 7.4 gm/dL (6.0-8.0)
[2024-08-05 22:04] LABS: ETHYL ALCOHOL < 3.0 mg/dl (<3)
[2024-08-05] MEDS ORDERED: DULOXETINE HCL60 MG PO (22:33)
[2024-08-05] MEDS ORDERED: MELOXICAM15 MG PO (22:33)
[2024-08-05] MEDS ORDERED: OXYBUTYNIN CHLOR5 M1 PO (22:34)
[2024-08-05] MEDS ORDERED: PREGABALIN200 MG PO (22:34)
[2024-08-05] MEDS ORDERED: OMEPRAZOLE40 MG PO (22:35)
[2024-08-05] MEDS ORDERED: HYDROXYZINE HCL25 MG PO (22:36)
[2024-08-05 23:21] LABS: BILIRUBIN Negative (Negative); BLOOD Negative (Negative); CLARITY Cloudy (Clear); COLOR Dark Yellow (Yellow); GLUCOSE Negative (Negative); KETONE Trace (Negative); LEUKO ESTERASE 2+ (Negative); NITRITE Positive (Negative); PH 6.5 (4.5-8.0)
[2024-08-05 23:28] LABS: URINE AMPHETAMINES Positive (1000ng/ml); URINE BARBITURATES Negative (200ng/ml); URINE BENZODIAZEPINES Negative (200ng/ml); URINE CANNABINOIDS (THC) Negative (50ng/ml); URINE COCAINE Negative (300ng/ml); URINE METHADONE Negative (300ng/ml); URINE OPIATES Negative (300ng/ml); URINE PHENCYCLIDINE Negative (25ng/ml)
[2024-08-05 23:54] LABS: BACTERIA 4+; EPITHELIAL CELLS 31-40; WBC 16-20 wbc/hpf (0-5)
[2024-08-06] MEDS ORDERED: CIPRO500 MG PO (00:01)
[2024-08-06] MEDS ORDERED: Ciprofloxacin Hydrochloride 500 MG TAB PO ONE (00:05)
[2024-08-06 00:07] VITALS: BP 117/70
== END 2024-08-06 00:09 | disposition home or self-care (01) ==
LOC: ED 21:01
PROVIDERS: Internal Medicine
DX: N39.0 Urinary tract infection, site not specified (principal); R41.82 Altered mental status, unspecified; E83.42 Hypomagnesemia; K21.9 Gastro-esophageal reflux disease without esophagitis; F32.A Depression, unspecified; F10.10 Alcohol abuse, uncomplicated; F17.200 Nicotine dependence, unspecified, uncomplicated; Z98.890 Other specified postprocedural states; Z79.899 Other long term (current) drug therapy

== ENCOUNTER 2024-12-25 03:09 | Emergency (ER) | payer OTHER ==
[~2024-12-25 03:09] MED LIST changes: +DULOXETINE HCL60 MG PO; +HYDROXYZINE HCL25 MG PO; +MELOXICAM15 MG PO; +OMEPRAZOLE40 MG PO; +OXYBUTYNIN CHLOR5 M1 PO; +PREGABALIN200 MG PO
== END 2024-12-25 03:15 | disposition left against medical advice (07) ==
LOC: ED 03:09
DX: Z04.89 Encounter for examination and observation for other specified reasons (principal); Z79.899 Other long term (current) drug therapy; Z98.890 Other specified postprocedural states; Z87.891 Personal history of nicotine dependence; Z53.21 Procedure and treatment not carried out due to patient leaving prior to being seen by health care provider

== ENCOUNTER 2025-06-17 08:49 | Emergency (ER) | payer OTHER ==
[~2025-06-17] VITALS: Ht 160 cm; Wt 70.3 kg
[2025-06-17 08:51] VITALS: BP 149/99
[2025-06-17] MEDS ORDERED: diazePAM 10 MG/2 ML SYR IV ONE (09:10)
[2025-06-17] MEDS ORDERED: SODIUM CHLORIDE 0.9% 1,000 ML IV ONE (09:10)
[2025-06-17] MEDS ORDERED: Ondansetron Hydrochloride 4 MG/2 ML VIAL IV ONE (09:10)
[2025-06-17 09:33] LABS: BASO # 0.0 10*3/uL (0.0-0.1); BASO % 0.6 % (0.0-1.0); EOS # 0.1 10*3/uL (0.0-0.4); EOS % 1.9 % (1.0-4.0); MEAN CELL VOLUME 93.1 fl (81.0-99.0); MEAN CORPUSCULAR HGB 30.9 pg (27.0-31.0); MEAN PLATELET VOLUME 10.1 fl (9.6-12.3); MONO # 0.7 10*3/uL (0.1-1.0); MONO % 9.5 % (3.0-9.0); NEUT # 3.7 10*3/uL (2.3-7.9); NEUT % 53.5 % (47.0-73.0); NUCLEATED RED BLOOD CELL 0.0 % (0.0-0.0); NUCLEATED RED BLOOD CELL 0.0 10*3/uL (0.0-0.0); PLATELET COUNT AUTOMATED 264 10*3/uL (130-400); RED CELL DISTRI WIDTH 12.8 % (0-14.5)
[2025-06-17 09:56] LABS: BILIRUBIN Negative (Negative); BLOOD Negative (Negative); CLARITY Cloudy (Clear); COLOR Dark Yellow (Yellow); KETONE 3+ (Negative); LEUKO ESTERASE 1+ (Negative); NITRITE Negative (Negative); PH 6.0 (4.5-8.0); SPECIFIC GRAVITY 1.020 (1.001-1.030); UROBILINOGEN 1.0 E.U./dl (0.0-1.0)
[2025-06-17 10:03] LABS: BUN 19 mg/dl (9-23); CPK 88 U/L (34-171); SGPT/ALT 23 U/L (5-49)
[2025-06-17 10:03] LABS: URINE AMPHETAMINES Positive (1000ng/ml); URINE BARBITURATES Negative (200ng/ml); URINE BENZODIAZEPINES Positive (200ng/ml); URINE CANNABINOIDS (THC) Positive (50ng/ml); URINE COCAINE Negative (300ng/ml); URINE METHADONE Negative (300ng/ml); URINE OPIATES Negative (300ng/ml); URINE PHENCYCLIDINE Negative (25ng/ml)
[2025-06-17 10:08] LABS: BACTERIA 3+; MUCOUS 3+; WBC 16-20 wbc/hpf (0-5)
[2025-06-17 10:14] LABS: ETHYL ALCOHOL < 3.0 mg/dl (<3)
[2025-06-17] MEDS ORDERED: CIPRO500 MG PO (11:15)
== END 2025-06-17 11:22 | disposition home or self-care (01) ==
LOC: ED 08:49
PROVIDERS: Emergency Medicine
DX: F19.10 Other psychoactive substance abuse, uncomplicated (principal); G89.29 Other chronic pain; M54.50 Low back pain, unspecified; M79.2 Neuralgia and neuritis, unspecified; N39.0 Urinary tract infection, site not specified; F20.9 Schizophrenia, unspecified; F17.200 Nicotine dependence, unspecified, uncomplicated; Z79.899 Other long term (current) drug therapy; Z79.2 Long term (current) use of antibiotics; Z98.890 Other specified postprocedural states

== ENCOUNTER 2025-06-19 08:53 | Emergency (ER) | payer OTHER ==
[~2025-06-19] VITALS: Ht 160 cm; Wt 64.4 kg
[2025-06-19 09:59] VITALS: BP 129/59
== END 2025-06-19 11:00 | disposition home or self-care (01) ==
LOC: ED 08:53
DX: F19.10 Other psychoactive substance abuse, uncomplicated (principal); K21.9 Gastro-esophageal reflux disease without esophagitis; F32.A Depression, unspecified; F20.9 Schizophrenia, unspecified; F17.200 Nicotine dependence, unspecified, uncomplicated; Z86.19 Personal history of other infectious and parasitic diseases; Z98.890 Other specified postprocedural states

== ENCOUNTER 2025-06-20 02:29 | Emergency (ER) | payer OTHER ==
[~2025-06-20] VITALS: Ht 167.6 cm; Wt 72.6 kg
[2025-06-20 02:40] VITALS: BP 137/98
[2025-06-20 03:02] LABS: BILIRUBIN Negative (Negative); BLOOD 2+ (Negative); CLARITY Cloudy (Clear); COLOR Dark Yellow (Yellow); KETONE 1+ (Negative); LEUKO ESTERASE Trace (Negative); NITRITE Negative (Negative); PH 5.5 (4.5-8.0); SPECIFIC GRAVITY 1.025 (1.001-1.030); UROBILINOGEN 1.0 E.U./dl (0.0-1.0)
[2025-06-20 03:04] LABS: BASO # 0.0 10*3/uL (0.0-0.1); BASO % 0.6 % (0.0-1.0); EOS # 0.2 10*3/uL (0.0-0.4); EOS % 2.3 % (1.0-4.0); MEAN CELL VOLUME 94.8 fl (81.0-99.0); MEAN CORPUSCULAR HGB 30.9 pg (27.0-31.0); MEAN PLATELET VOLUME 10.0 fl (9.6-12.3); MONO # 0.5 10*3/uL (0.1-1.0); MONO % 7.3 % (3.0-9.0); NEUT # 3.5 10*3/uL (2.3-7.9); NEUT % 54.7 % (47.0-73.0); NUCLEATED RED BLOOD CELL 0.0 % (0.0-0.0); NUCLEATED RED BLOOD CELL 0.0 10*3/uL (0.0-0.0); PLATELET COUNT AUTOMATED 248 10*3/uL (130-400); RED CELL DISTRI WIDTH 12.7 % (0-14.5)
[2025-06-20 03:07] LABS: EPITHELIAL CELLS 41-50
[2025-06-20 03:08] LABS: BACTERIA 3+; RBC 16-20 rbc/hpf (0-2); WBC 16-20 wbc/hpf (0-5)
[2025-06-20 03:09] LABS: URINE AMPHETAMINES Positive (1000ng/ml); URINE BARBITURATES Negative (200ng/ml); URINE BENZODIAZEPINES Positive (200ng/ml); URINE CANNABINOIDS (THC) Negative (50ng/ml); URINE COCAINE Negative (300ng/ml); URINE METHADONE Negative (300ng/ml); URINE OPIATES Negative (300ng/ml); URINE PHENCYCLIDINE Negative (25ng/ml)
[2025-06-20 03:36] LABS: BUN 27 mg/dl (9-23); SGPT/ALT 28 U/L (5-49)
[2025-06-20 03:37] LABS: ETHYL ALCOHOL < 3.0 mg/dl (<3)
== END 2025-06-20 12:05 ==
LOC: ED 02:29
PROVIDERS: Internal Medicine
DX: R44.0 Auditory hallucinations (principal); F17.200 Nicotine dependence, unspecified, uncomplicated; Z98.890 Other specified postprocedural states